=== PATIENT | female | born 2005 | race Caucasian/White ===

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

== ENCOUNTER 2024-08-24 15:50 | Inpatient (IN) | payer OTHER ==
[~2024-08-24] VITALS: Ht 157.5 cm; Wt 68.2 kg
[2024-08-24] MEDS ORDERED: RHOGAM 300MCG (1500IU) INJ IM SCH (17:50)
[2024-08-24] MEDS ORDERED: METHYLERGONOVINE MALEATE 0.2 MG TAB PO PRN (17:50)
[2024-08-24] MEDS ORDERED: ACETAMINOPHEN 500 MG TAB PO PRN (17:50)
[2024-08-24] MEDS ORDERED: DIBUCAINE 1% OINTMENT 30GM TOP PRN (17:50)
[2024-08-24] MEDS ORDERED: IBUPROFEN 600MG TAB PO PRN (17:50)
[2024-08-24] MEDS ORDERED: ANUSOL HC CREAM 30GM TOP PRN (17:50)
[2024-08-24] MEDS ORDERED: DOCUSATE SODIUM 100MG CAPSULE PO PRN (17:50)
[2024-08-24] MEDS ORDERED: ACETAMINOPHEN 325 MG TAB PO PRN (17:50)
[2024-08-24] MEDS ORDERED: MOM 30ML SUSPENSION UDC PO PRN (17:50)
[2024-08-24 19:30] LABS: BASO % 0.1 % (0.0-1.0); EOS % 0.1 % (0.0-3.0); HEMATOCRIT 26.7 % (36.0-47.0); LYMPH # 1.7 10^3/uL (1.5-5.0); LYMPH % 12.7 % (24.0-44.0); MEAN CORPUSCULAR HEMOGLOBIN 27.6 pg (27.0-33.0); MEAN CORPUSCULAR HGB CONC 33.7 g/dl (32.0-36.5); MEAN CORPUSCULAR VOLUME 81.9 fl (80.0-96.0); MONO % 7.5 % (2.0-8.0); NEUTROPHILS # 10.6 10^3/uL (1.5-8.5); NEUTROPHILS % 79.2 % (36.0-66.0); PLATELET COUNT, AUTOMATED 271 10^3/uL (150-450); RED BLOOD COUNT 3.26 10^6/uL (4.00-5.40); WHITE BLOOD COUNT 13.4 10^3/uL (4.0-10.0)
[2024-08-24 20:27] LABS: HIV 1&2 SCREEN NEGATIVE (NEGATIVE)
[2024-08-24 20:35] LABS: HEPATITIS C VIRUS ABY INDEX 0.02 INDEX (<0.8)
[2024-08-24] MEDS: IBUPROFEN 800 MG TAB PO PRN (20:44)
[2024-08-25 05:55] VITALS: BP 121/71; O2SAT 94
[2024-08-25] MEDS: BUPRENORPHINE HCL 8MG SUBINGUAL TABLET SL SCH (09:21)
[2024-08-25] MEDS: PRENATAL VITAMINS CHEWABLE TABLET PO SCH (09:21)
[2024-08-25] MEDS ORDERED: TRAZ-252 PO (09:58)
[2024-08-25] MEDS ORDERED: HYDR-643 PO (09:58)
[2024-08-25] MEDS ORDERED: BUPR8SUB SL (10:01)
[2024-08-26] MEDS ORDERED: MEASLES,MUMPS,RUBELLA VACCINE INJ (MMR-II) SC.IMMUN ONE (09:00)
== END 2024-08-25 16:26 | disposition home or self-care (01) | DRG 561 ==
LOC: M OBS 18:35
PROVIDERS: ADMIT Obstetrics & Gynecology; ATTEND Obstetrics & Gynecology
DX: Z39.0 Encounter for care and examination of mother immediately after delivery (principal)